=== PATIENT | male | born 1995 | race Caucasian/White ===

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

== ENCOUNTER 2017-03-03 18:59 | Emergency (ER) | payer SELFPAY ==
[~2017-03-03] VITALS: Ht 185.4 cm; Wt 83.0 kg
[~2017-03-03 18:59] MED LIST changes: -INHALER INH; +OMEP20TA93 PO
[2017-03-03 19:02] VITALS: BP 135/70; PULSE 98; RESP 18; TEMP 98.1; O2SAT 98
[2017-03-03] MEDS ORDERED: VENTAER INH (19:16)
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
== END 2017-03-03 21:35 | disposition home or self-care (01) ==
LOC: PHEFT 18:59
DX: S00.83XA Contusion of other part of head, initial encounter (principal); S16.1XXA Strain of muscle, fascia and tendon at neck level, initial encounter; J45.909 Unspecified asthma, uncomplicated; K21.9 Gastro-esophageal reflux disease without esophagitis; Z87.39 Personal history of other diseases of the musculoskeletal system and connective tissue; Y04.2XXA Assault by strike against or bumped into by another person, initial encounter; Y92.002 Bathroom of unspecified non-institutional (private) residence as the place of occurrence of the external cause
CPT/HCPCS: 70100; 72050; 99283

== ENCOUNTER 2017-07-21 22:10 | Emergency (ER) | payer OTHER ==
[~2017-07-21] VITALS: Ht 185.4 cm; Wt 85.3 kg
[~2017-07-21 22:10] MED LIST changes: +VENTAER INH
[2017-07-21 22:13] VITALS: BP 132/72; PULSE 60; RESP 16; TEMP 98.3; O2SAT 100
--- NOTE | 2017-07-21 22:24 | PD ---
HPI Chief Complaint: Headache Time Seen by Provider: 22:23 Travel History International Travel<30 days: No Contact w/Intl Traveler<30days: No Traveled to known affect area: No History of Present Illness HPI 21-year-old male came to the emergency room with history of ailing head fullness and periorbital edema after he used an inversion table at 8 PM. Patient says that he use the stable in the past but not recently. Something like this never happened to him. He has been using this on his own accord without any proper instructions or recommendations from proper authorities. He says he has used his father's inversion table in the past. No history of head injury or loss of conscious. No history of any vision loss. Patient is really concerned that he may have issues with his retinal artery. There was a visual acuity done upon arrival and both eyes were 20/20. Vital signs are stable. [facility] Past Medical History Narrative Medical List of his past medical, surgical, social and family history reviewed from the nursing note. Asthma: Yes Autoimmune Disease: No Cardiovascular Problems: No Diminished Hearing: No Gastrointestinal Disorders: No GERD: Yes Genitourinary: No Musculoskeletal: Yes (CERVICAL SPINE PAIN) Neurologic: No Psychiatric: No Respiratory: Yes (asthma ) Immunizations Current: Yes Past Surgical History Other Surgery: No Social History Alcohol Use: No Tobacco Use: No Substance Use: Yes (MUSHROOMS ONCE ) Allergies-Medications (Allergen,Severity, Reaction): Coded Allergies: No Known Allergies (Verified Adverse Reaction, Unknown, 03/03/17) Comments No known drug allergies. Reported Meds & Prescriptions Reported Meds & Active Scripts Active Reported Ventolin Hfa 18 GM Inh (Albuterol Sulfate) 90 Mcg/Act Aer 2 Puff INH Q4-6H PRN Omeprazole 20 Mg Tab 20 Mg PO DAILY Narrative Medication List of his home medications reviewed from the alf. Review of Systems Except as stated in HPI: all other systems reviewed are Neg Physical Exam Narrative GENERAL: Awake, alert, no obvious distress, disheveled SKIN: Focused skin assessment warm/dry. HEAD: Atraumatic. Normocephalic. EYES: Pupils equal and round. No scleral icterus. No injection or drainage. ENT: No nasal bleeding or discharge. Mucous membranes pink and moist. NECK: Trachea midline. No JVD. CARDIOVASCULAR: Regular rate and rhythm. No murmur appreciated. RESPIRATORY: No accessory muscle use. Clear to auscultation. Breath sounds equal bilaterally. GASTROINTESTINAL: Abdomen soft, non-tender, nondistended. Hepatic and splenic margins not palpable. MUSCULOSKELETAL: No obvious deformities. No clubbing. No cyanosis. No edema. NEUROLOGICAL: Awake and alert. No obvious cranial nerve deficits. Motor grossly within normal limits. Normal speech. PSYCHIATRIC: Appropriate mood and affect; insight and judgment normal. Data Data Last Documented VS Orders Orders Ed Discharge Order (07/21/17 22:53) [facility] Medical Decision Making Medical Screen Exam Complete: Yes Emergency Medical Condition: Yes Medical Record Reviewed: Yes Differential Diagnosis Normal exam, anxiety Narrative Course 11 PM I tried to reassure the patient that his vital signs, visual acuity and rest of his exam was within normal limit. At this point he will just have to take it easy and not do the inversion table anymore until he gets proper recommendations from a physical therapist or a chiropractor. However patient did not seem happy with this. I do not see a reason to pursue this any further with imaging studies like CT scan or MRI at this point. He does have a primary care physician and I have asked him to follow-up with his primary care physician. He will be discharged home. Procedures EKG Prior to Arrival: No Diagnosis Primary Impression: Normal physical exam Additional Impression: Anxiety Additional Instructions: You should not be using inversion table without proper recommendation from proper authorities. Follow-up with primary care. Disposition: 01 DISCHARGE HOME Condition: Stable Landy De Souza MD Jul 21, 2017 22:24
[2017-07-21 22:59] VITALS: BP 140/75; TEMP 98.3
== END 2017-07-21 23:00 | disposition home or self-care (01) ==
LOC: PHED 22:10
DX: Z00.00 Encounter for general adult medical examination without abnormal findings (principal); F41.9 Anxiety disorder, unspecified; R51 Headache; J45.909 Unspecified asthma, uncomplicated; K21.9 Gastro-esophageal reflux disease without esophagitis
CPT/HCPCS: 99282